=== PATIENT | female | born 1955 | race Caucasian/White ===

== ENCOUNTER 2016-09-15 04:42 | Emergency (ER) | payer OTHER ==
[~2016-09-15] VITALS: Ht 170.2 cm; Wt 84.1 kg
[~2016-09-15 04:42] MED LIST: ASPI-99 PO; ERYT.5%O RIGHT EYE; GLUCTAB PO; LISI10TA PO; MULT-65 PO; PERM5CRE4 TOP; PRED20 PO; VITA400C70 PO
[2016-09-15 04:56] VITALS: BP 124/82; PULSE 80; RESP 16; TEMP 98.4; O2SAT 93
[2016-09-15] MEDS ORDERED: LISI10TA PO (05:12)
[2016-09-15] MEDS ORDERED: VITA-136 PO (05:12)
[2016-09-15] MEDS ORDERED: GLUCTAB PO (05:12)
[2016-09-15] MEDS ORDERED: MULTTAB67 PO (05:12)
[2016-09-15] MEDS ORDERED: VITA100064 PO (05:12)
[2016-09-15] MEDS ORDERED: VITA500T4 PO (05:12)
[2016-09-15] MEDS ORDERED: PROPARACAINE HCL 0.5% OPHT SOLN 15 ML BTL RIGHT EYE ONE (05:15)
[2016-09-15] MEDS ORDERED: VIGA0.5D RIGHT EYE (05:30)
--- NOTE | 2016-09-15 05:30 | PD ---
HPI Chief Complaint: Eye Problems/Injury Time Seen by Provider: 05:03 Travel History International Travel<30 days: No Contact w/Intl Traveler<30days: No Traveled to known affect area: No History of Present Illness HPI This is a 61-year-old female who presents to the emergency department with pain and irritation in her right eye feeling like she has a foreign body in her eye, constant, moderate severity that's been going on for 2 days. She says she was doing some yard work mowing the lawn the day prior to the onset of her symptoms. She has had some clear drainage from her eye. She says her vision is not affected. PFSH Past Medical History Depression: Yes Diabetes: Yes Patient Takes Glucophage: Yes Diminished Hearing: Yes (HEARING AIDS BILAT) Hypertension: Yes Tetanus Vaccination: Unknown Influenza Vaccination: No ?: Not LMP: MENAPAUSAL Menopausal: Yes : 3 Para: 3 Tubal Ligation: Yes Past Surgical History Section: Yes (1982) Gynecologic Surgery: Yes (C SECTION X 1) Social History Alcohol Use: Yes () Tobacco Use: No (QUIT 1984) Substance Use: No Allergies-Medications (Allergen,Severity, Reaction): Coded Allergies: No Known Allergies (Verified , 08/10/12) Reported Meds & Prescriptions Reported Meds & Active Scripts Active Reported Vitamin E (Vitamin E Acetate) 400 Unit Capsule 1 Cap PO DAILY Multiple Vitamin 1 Tab 1 Tab PO DAILY Glucophage XR (Metformin HCl) 500 Mg Sirena 500 Mg PO BID With evening meal Lisinopril-Hctz 10-12.5 Mg Tab 1 Tab PO DAILY Vitamin D (Cholecalciferol) 1,000 Unit Tab 1,000 Units PO DAILY Vitamin B-12 (Cyanocobalamin) 500 Mcg Tab 500 Mcg PO DAILY Review of Systems General / Constitutional: No: Fever, Chills Cardiovascular: No: Chest Pain or Discomfort Physical Exam Narrative GENERAL: Well-appearing, no acute distress, nontoxic Eye: Diffuse conjunctival injection of the right eye, small punctate area floor seen uptake along the mid right cornea consistent with a corneal abrasion. No evident of foreign body under the eyelid. SKIN: Warm and dry. HEAD: Atraumatic. Normocephalic. ENT: No nasal bleeding or discharge. Moist mucous membranes MUSCULOSKELETAL: No obvious deformities. No clubbing. No cyanosis. No edema. NEUROLOGICAL: Awake and alert. No obvious cranial nerve deficits. Motor grossly within normal limits. Normal speech. PSYCHIATRIC: Appropriate mood and affect; insight and judgment normal. Data Data Last Documented VS Vital Signs Date Time Temp Pulse Resp B/P Pulse Ox O2 Delivery O2 Flow Rate FiO2 09/15/16 04:56 98.4 80 16 124/82 93 Orders Proparacaine 0.5% Opth Soln (Alcaine 0.5 (09/15/16 05:15) MDM Medical Decision Making Medical Screen Exam Complete: Yes Emergency Medical Condition: Yes Differential Diagnosis Corneal abrasion, corneal ulcer, foreign body, scleritis, uveitis, conjunctivitis Narrative Course This is a 61-year-old female who presents to the emergency department with pain in her right eye. On fluoroscein exam she has a small area of floor seen uptake in the center of the cornea consistent with a corneal abrasion. I don't see a foreign body. Patient will be discharged on antibiotics and should follow -up with ophthalmology on Saturday. Diagnosis Primary Impression: Corneal abrasion Qualified Code: S05.01XA - Corneal abrasion, right, initial encounter Referrals: Guadalupe Schmidt MD Additional Instructions: If you develop worsening pain in the eye, difficulty with vision or yellow or green drainage from her eye return to the emergency department immediately. Follow-up with an advertiser on Saturday. Med/Other Pt SpecificInfo: Prescription(s) given Scripts Moxifloxacin Opth Drops (Vigamox Opth Drops)0.5 % Soln1 Drop RIGHT EYE TID #1 BOTTLE Ref 0 Prov:Vivian Sexton MD 09/15/16 Disposition: 01 DISCHARGE HOME Condition: Stable Vivian Sexton MD Sep 15, 2016 05:30
== END 2016-09-15 05:44 | disposition home or self-care (01) ==
LOC: PHED 04:42
DX: S05.01XA Injury of conjunctiva and corneal abrasion without foreign body, right eye, initial encounter (principal); X58.XXXA Exposure to other specified factors, initial encounter; E11.9 Type 2 diabetes mellitus without complications; I10 Essential (primary) hypertension
CPT/HCPCS: 99283